=== PATIENT | male | born 1985 | race Caucasian/White ===

== ENCOUNTER 2017-11-08 12:21 | Emergency (ER) | payer SELFPAY ==
[~2017-11-08] VITALS: Ht 167.6 cm; Wt 79.4 kg
[2017-11-08 12:34] VITALS: BP 132/86
--- NOTE | 2017-11-08 12:38 | NUR ---
PT AMBULATES TO BED 3
--- NOTE | 2017-11-08 12:48 | NUR ---
32 YO M PT C/O LUQ ABD PAIN RADIATING TO LLQ 10/10 FOR 2 WEEKS. DENIES N/V/D OR FEVER AND CHILLS. REPORTS HE DRINKS 2 BEERS EVERYDAY. LAST BM YESTERDAY. PT REPORTS THAT THE PAIN IS SO INTENSE THAT HE CANNOT LAY DOWN. AAOX4. GCS 15. CMS INTACT. RR EVEN AND UNLABORED. LUNGS BILATERALLY CLEAR. ABD SOFT, NON-TENDER. BOWEL SOUNDS ACTIVE X 4 QUADS. ER MD HOLMAN NOTIFIED. PT NEEDS MET. SAFETY PRECAUTIONS IN PLACE. WILL CONTINUE TO MONITOR.
[2017-11-08] MEDS ORDERED: LIDOCAINE VISCOUS 2% 20 ML UDC PO ONE (12:55)
[2017-11-08] MEDS ORDERED: ALUMINUM HYD/MAG/SIMETHICONE 30 ML UDC PO ONE (12:55)
[2017-11-08] MEDS ORDERED: DICYCLOMINE HCL LIQUID 10 MG/5 ML UDC PO ONE (12:55)
--- NOTE | 2017-11-08 13:15 | NUR ---
pt resting cofmortably in [facility] at this time. vss. rr even and unlabored. safety precautions in place. will continue to monitor.
[2017-11-08 13:55] VITALS: BP 121/68
== END 2017-11-08 13:55 | disposition home or self-care (01) ==
LOC: MED 12:21
DX: K59.00 Constipation, unspecified (principal); R03.0 Elevated blood-pressure reading, without diagnosis of hypertension
CPT/HCPCS: 74018; 99283; Q0092

== ENCOUNTER 2022-08-02 11:32 | Inpatient (IN) | payer MEDICAID ==
[~2022-08-02] VITALS: Ht 167.6 cm; Wt 89.4 kg
[2022-08-02 11:42] VITALS: BP 152/97
--- NOTE | 2022-08-02 11:55 | NUR ---
ASSUMED PATIENT CARE, NURSING ASSESSMENT COMPLETED.
[2022-08-02 12:54] LABS: APPEARANCE,URINE CLEAR (CLEAR); BILIRUBIN,URINE 1+ (NEGATIVE); BLOOD, URINE NEGATIVE (NEGATIVE); COLOR,URINE YELLOW (YELLOW); LEUKOCYTE ESTERASE ,URINE NEGATIVE (NEGATIVE); NITRITE, URINE NEGATIVE (NEGATIVE); UGLUCOSE NEGATIVE (NEGATIVE)
[2022-08-02 13:07] LABS: ANION GAP 14.3 (8-16); CARBON DIOXIDE 28.2 mmol/L (21-32); CREATININE 0.8 mg/dL (0.6-1.3); POTASSIUM 3.5 mmol/L (3.5-5.1); TOTAL BILIRUBIN 1.8 mg/dL (0.0-1.0)
[2022-08-02 13:12] LABS: BASOPHILS % (AUTO) 0.4 % (0.0-2.0); EOSINOPHILS % (AUTO) 0.1 % (0.0-4.0); HEMATOCRIT 50.1 % (36-52); HEMOGLOBIN 16.9 g/dL (12.0-18.0); LYMPHOCYTES # (AUTO) 2.3 K/uL (2.0-11.5); LYMPHOCYTES % (AUTO) 22.2 % (20.5-51.1); MEAN CORPUSCULAR HEMOGLOBIN 30 pg (27-31); MEAN CORPUSCULAR HGB CONC 34 g/dL (33-37); MEAN CORPUSCULAR VOLUME 88.4 fL (80-94); MONOCYTES # (AUTO) 0.6 K/uL (0.8-1.0); MONOCYTES % (AUTO) 5.5 % (1.7-9.3); NEUTROPHILS # (AUTO) 7.6 K/uL (1.8-7.7); NEUTROPHILS % (AUTO) 71.8 % (42.2-75.2); PLATELET COUNT (AUTO) 162 K/uL (140-450); RED BLOOD CELL COUNT(AUTO) 5.66 MIL/uL (4.20-6.10); WHITE BLOOD COUNT (AUTO) 10.6 K/uL (4.8-10.8)
[2022-08-02 13:14] LABS: RBC,URINE 0-5 /HPF (0-5); WBC,URINE 0-5 /HPF (0-5)
[2022-08-02] MEDS ORDERED: NACL 0.9% 1,000 ML IV ONE ×2 (13:20→16:15)
[2022-08-02] MEDS ORDERED: KETOROLAC 30 MG/ML VIAL IVP ONE (13:20)
[2022-08-02] MEDS ORDERED: PIPERACILLIN/TAZOBACTAM 3.375 GM in DEXTROSE 5% 50 ML IV ONE (13:20)
[2022-08-02] MEDS ORDERED: PIPERACILLIN/TAZOBACTAM 3.375 GM VIAL IV ONE (13:30)
[2022-08-02] MEDS ORDERED: ONDANSETRON 4 MG/2 ML VIAL IVP ONE (14:25)
[2022-08-02] MEDS ORDERED: MORPHINE SULFATE 4 MG/ML SYR IVP ONE (14:25)
--- NOTE | 2022-08-02 14:50 | NUR ---
DISPO AND MEDICAL DECISION INPATIENT ADMISSION FOR FURTHER MANAGEMENT PATIENT UPDATED ACCORDINGLY.
[2022-08-02 15:30] LABS: PROTHROMBIN TIME 11.6 secs (10.8-13.4)
--- NOTE | 2022-08-02 15:55 | NUR ---
FR 14 NGT INSERTED TO LEFT NARE. PLACEMENT CONFIRMED BY XRAY.
--- NOTE | 2022-08-02 17:17 | NUR ---
Patient will be admitted to care of [facility]. Admited to TELEMETRY. Will go to room [facility]. Belongings list completed. Report to WILLET.
[2022-08-02] MEDS: MORPHINE SULFATE 2 MG/ML SYR IVP PRN ×2 (18:01→23:12)
[2022-08-02 20:00] VITALS: BP 153/97
--- NOTE | 2022-08-02 20:00 | NUR ---
RECEIVED PT FROM DAY RN FOR CONTINUITY OF CARE. PT AWAKE, ALERT AND ORIENTED X 4, WELSH SPEAKING. ON ROOM AIR, BREATHING EVEN AND UNLABORED. VITAL SIGNS FOLLOWS 157/97 NM 86 RR 19 T 99.2 O2 SAT AT 94%. NGT IN PLACE ON LOW INTERMITTENT SUCTION. IV ON R AC G18 RUNNING NS AT 100ML/HR. SKIN WARM, DRY AND INTACT. PT COMPLAINS OF ABDOMINAL PAIN. PRN PAIN MEDICATION GIVEN. PT CURRENTLY NPO. POC DISCUSSED, ALL PRECAUTIONS IN PLACE .CALL LIGHT WITHIN REACH. WILL CONTINUE TO MONITOR.
[2022-08-02] MEDS ORDERED: KCL 20 MEQ IN 100 mL PREMIX 200 ML IV ONE (20:25)
--- NOTE | 2022-08-02 21:00 | NUR ---
CALLED. CURRENT CBC AND BMP RESULT GIVEN. ORDERS RECEIVED. K JUDE GIVEN PER MD. WILL CONTINUE TO MONITOR.
[2022-08-02] MEDS ORDERED: MAG SULF 2000 MG/WATER PREMIX 50 ML IV PRN (22:00)
[2022-08-02] MEDS ORDERED: DOCUSATE SODIUM 100 MG GELCAP PO PRN (22:00)
[2022-08-02] MEDS ORDERED: POTASSIUM CHLORIDE 10 MEQ TABER PO PRN (22:00)
[2022-08-02] MEDS ORDERED: ONDANSETRON 4 MG/2 ML VIAL IVP PRN (22:00)
--- NOTE | 2022-08-02 23:30 | NUR ---
PT COMPLAINS OF 7/10 ABDOMINAL PAIN. PRN PAIN MEDICATION GIVEN. WILL CONTINUE TO MONITOR.
[2022-08-03] VITALS: BP 151/79
--- NOTE | 2022-08-03 01:47 | NUR ---
PT IS ASLEEP. VISIBLE CHEST RISE AND FALL NOTED. NO S/SX OF DISTRESS. ALL PRECAUTIONS IN PLACE .WILL CONTINUE TO MONITOR.
[2022-08-03 03:54] LABS: BASOPHILS % (AUTO) 0.4 % (0.0-2.0); EOSINOPHILS # (AUTO) 0.2 K/uL (0-0.4); EOSINOPHILS % (AUTO) 2.1 % (0.0-4.0); HEMATOCRIT 45.4 % (36-52); HEMOGLOBIN 15.4 g/dL (12.0-18.0); LYMPHOCYTES # (AUTO) 1.9 K/uL (2.0-11.5); LYMPHOCYTES % (AUTO) 23.7 % (20.5-51.1); MEAN CORPUSCULAR HEMOGLOBIN 30 pg (27-31); MEAN CORPUSCULAR HGB CONC 34 g/dL (33-37); MEAN CORPUSCULAR VOLUME 88.9 fL (80-94); MONOCYTES # (AUTO) 0.7 K/uL (0.8-1.0); MONOCYTES % (AUTO) 8.8 % (1.7-9.3); NEUTROPHILS # (AUTO) 5.3 K/uL (1.8-7.7); PLATELET COUNT (AUTO) 120 K/uL (140-450); RED BLOOD CELL COUNT(AUTO) 5.11 MIL/uL (4.20-6.10); RED CELL DISTRIBUTION WIDTH 14.1 % (11.6-13.7); WHITE BLOOD COUNT (AUTO) 8.2 K/uL (4.8-10.8)
[2022-08-03 04:00] VITALS: BP 155/87
[2022-08-03 04:04] LABS: ANION GAP 9.7 (8-16); CARBON DIOXIDE 31.3 mmol/L (21-32); CREATININE 0.8 mg/dL (0.6-1.3)
--- NOTE | 2022-08-03 06:40 | NUR ---
PT IS STABLE. NO ACUTE EVENTS THROUGHOUT THE NIGHT. NO S/SX OF DISTRESS OF THE MOMENT. NO COMPLAINS OF PAIN. ALL PRECAUTIONS IN PLACE. CALL LIGHT WITHIN REACH. WILL ENDORSE TO DAY SHIFT NURSE.
[2022-08-03] MEDS ORDERED: GLYCOPYRROLATE 0.2 MG/ML VIAL ONE (07:00)
[2022-08-03] MEDS ORDERED: PIPERACILLIN/TAZOBACTAM 3.375 GM VIAL IV ONE ×2 (07:00→08:21)
[2022-08-03] MEDS ORDERED: SUCCINYLCHOLINE CHLORIDE 200 MG/10 ML VIAL IVP ONE ×2 (07:00→08:38)
[2022-08-03] MEDS ORDERED: VECURONIUM 10 MG VIAL IVP ONE (07:00)
[2022-08-03] MEDS ORDERED: PROPOFOL 200 MG/20 ML VIAL IV ONE ×2 (07:00→08:38)
[2022-08-03] MEDS ORDERED: SEVOFLURANE 250 ML BTL INH ONE (07:00)
[2022-08-03] MEDS ORDERED: ONDANSETRON 4 MG/2 ML VIAL ONE (07:00)
[2022-08-03] MEDS ORDERED: NEOSTIGMINE 1:1000 10 MG/10 ML VIAL ONE (07:00)
[2022-08-03] MEDS ORDERED: fentaNYL citrate 0.05 MG/ML - 50mL vial IV ONE (07:00)
[2022-08-03] MEDS ORDERED: ROCURONIUM 50 MG/5 ML VIAL IV ONE ×3 (07:00→08:38)
--- NOTE | 2022-08-03 07:15 | NUR ---
RECEIVED REPORT FROM ETIQUETTE COACH FOR CONTINUITY OF CARE. PATIENT LYING DOWN IN BED, NO DISTRESS NOTED. PAIN WITHIN TOLERABLE. IV SITE INTACT, PATENT, AND ON SALINE LOCK. ON O2 NC 2L/MIN. SCHEDULED FOR SURGERY AT 07:30, PATIENT AWARE. REVIEWED PLAN OF CARE WITH PATIENT. VERBALIZED UNDERSTANDING. SAFETY MEASURES IN PLACE, CALL LIGHT WITHIN REACH. WILL CONTINUE TO MONITOR.
[2022-08-03] MEDS ORDERED: BUPIVACAINE-MPF/EPI 0.25% 30 ML VIAL INJ ONE (07:39)
--- NOTE | 2022-08-03 07:40 | NUR ---
OR NURSES TAKING PATIENT FOR SURGERY.
[2022-08-03] MEDS ORDERED: fentaNYL citrate 0.05 MG/ML VIAL ONE (07:54)
[2022-08-03] MEDS: DEXT 5% / NACL 0.45% 1,000 ML IV SCH ×2 (09:35→19:35)
[2022-08-03] MEDS: HYDROmorphone 1 MG/ML AMP IVP PRN ×7 (09:55→17:06)
[2022-08-03] MEDS ORDERED: HYDROmorphone PFS 2 MG/ML SYR ONE ×2 (09:57→10:45)
[2022-08-03] MEDS ORDERED: hydrALAZINE 20 MG/ML VIAL IVP PRN (10:04)
[2022-08-03] MEDS ORDERED: LABETALOL 20 MG/4 ML VIAL IVP PRN (10:04)
[2022-08-03] MEDS ORDERED: LACTATED RINGERS 1,000 ML IV SCH (10:05)
[2022-08-03] MEDS ORDERED: HYDROmorphone 1 MG/ML AMP IVP SCH (10:30)
[2022-08-03 11:15] VITALS: BP 134/82
--- NOTE | 2022-08-03 11:15 | NUR ---
PATIENT BACK FROM OR, ON NC 5 L/MIN WITH O2 SAT 94%. PAIN WITHIN TOLERABLE AT THIS TIME. V/S STABLE. WILL CONTINUE TO MONITOR PER PROTOCOL.
--- NOTE | 2022-08-03 11:30 | NUR ---
DC PLANNING ASSESSMENT COMPLETE PLEASE REFER TO ASSESSMENT FOR ADDITIONAL DETAILS PT REPORTS TENTATIVE DC PLAN IS TO RETURN HOME WITH FAMILY PROVIDING TRANSPORTATION, ONCE MEDICALLY STABLE. Addendum: 08/04/22 at 1503 by Gamal YUAN Amended: Links added.
[2022-08-03] MEDS: PIPERACILLIN/TAZOBACTAM 3.375 GM in DEXTROSE 5% 50 ML IV SCH ×2 (12:00→17:28)
--- NOTE | 2022-08-03 12:18 | NUR ---
PATIENT SLEEPING, AT BEDSIDE. V/S STABLE. SCHEDULED MEDICATIONS DUE GIVEN. WILL CONTINUE TO MONITOR.
--- NOTE | 2022-08-03 12:21 | NUR ---
PATIENT HAS BEEN SCREENED AND CATEGORIZED MODERATE NUTRITION RISK. PATIENT WILL BE SEEN WITHIN 3-5 DAYS OF ADMISSION. REVIEWED BY KIEL DE LEON RD
[2022-08-03] MEDS: ACETAMINOPHEN 325 MG TAB PO PRN (14:17)
--- NOTE | 2022-08-03 14:26 | NUR ---
COMPLAINS OF A HEADACHE, TYLENOL GIVEN AT THIS TIME.
[2022-08-03] MEDS: MORPHINE SULFATE 2 MG/ML SYR IVP PRN ×2 (15:07→19:22)
--- NOTE | 2022-08-03 15:12 | NUR ---
COMPLAINS OF ABD PAIN. MORPHINE IVP PRN GIVEN AT THIS TIME. WILL CONTINUE TO MONITOR.
[2022-08-03 16:00] VITALS: BP 147/77
--- NOTE | 2022-08-03 19:17 | NUR ---
GAVE REPORT TO CUSTOM STOCK MAKER NURSE FOR CONTINUITY OF CARE.
--- NOTE | 2022-08-03 19:22 | NUR ---
RECEIVED PT IN BED AWAKE, ALERT AND ORIENTED. COMPLAINING OF 10/10 ABDOMINAL PAIN, MEDICATED WITH MORPHINE ORDERED. ABDOMINAL DRESSING CDI. IVF INFUSING WELL ORDERED. NGT TUBE TO LIS. SKIN WARM AND DRY TO TOUCH. FAMILY MEMBER AT THE BEDSIDE. SAFETY PRECAUTION IN PLACE, CALL LIGHT IN REACH.
[2022-08-03 19:55] VITALS: BP 136/94
--- NOTE | 2022-08-03 20:21 | NUR ---
INFORMED DR. GUAJARDO PT STILL IN PAIN, NEW ORDER GIVEN FOR DILAUDID 2 MG X1 NOW. WILL CARRY OUT ORDERED.
[2022-08-03] MEDS: LORazepam 2 MG/ML VIAL IVP PRN (20:27)
[2022-08-03] MEDS ORDERED: HYDROmorphone PFS 2 MG/ML SYR IVP SCH (20:35)
--- NOTE | 2022-08-03 22:00 | NUR ---
ROUNDING DONE. PATIENT IS ASLEEP. NO S/SX OF PAIN NOR DISCOMFORT. CALL LIGHT IN REACH.
[2022-08-04] VITALS: BP 145/92
--- NOTE | 2022-08-04 | NUR ---
VITAL SIGNS TAKEN AND DOCUMENTED. NO S/SX OF PAIN NOR DISCOMFORT.
[2022-08-04] MEDS: PIPERACILLIN/TAZOBACTAM 3.375 GM in DEXTROSE 5% 50 ML IV SCH ×3 (00:38→13:17)
[2022-08-04] MEDS: HYDROmorphone 1 MG/ML AMP IVP PRN ×2 (01:45→08:10)
[2022-08-04] MEDS: DEXT 5% / NACL 0.45% 1,000 ML IV SCH (01:55)
[2022-08-04] MEDS: MORPHINE SULFATE 2 MG/ML SYR IVP PRN ×3 (03:57→23:07)
[2022-08-04 04:00] VITALS: BP 147/77
[2022-08-04 05:31] LABS: BASOPHILS % (AUTO) 0.1 % (0.0-2.0); EOSINOPHILS % (AUTO) 0.2 % (0.0-4.0); HEMATOCRIT 42.4 % (36-52); HEMOGLOBIN 14.5 g/dL (12.0-18.0); LYMPHOCYTES % (AUTO) 22.1 % (20.5-51.1); MEAN CORPUSCULAR HEMOGLOBIN 30 pg (27-31); MEAN CORPUSCULAR HGB CONC 34 g/dL (33-37); MONOCYTES # (AUTO) 1.1 K/uL (0.8-1.0); MONOCYTES % (AUTO) 12.4 % (1.7-9.3); NEUTROPHILS # (AUTO) 5.9 K/uL (1.8-7.7); NEUTROPHILS % (AUTO) 65.2 % (42.2-75.2); PLATELET COUNT (AUTO) 113 K/uL (140-450); RED BLOOD CELL COUNT(AUTO) 4.76 MIL/uL (4.20-6.10); RED CELL DISTRIBUTION WIDTH 13.5 % (11.6-13.7); WHITE BLOOD COUNT (AUTO) 9.1 K/uL (4.8-10.8)
--- NOTE | 2022-08-04 06:28 | NUR ---
PATIENT IS ASLEEP. NO S/SX OF PAIN NOR DISCOMFORT. NOTED 150 ML OF BROWNISH FLUID FROM NGT. ALL NEEDS ATTENDED TO. SAFETY PRECAUTIONS MAINTAINED DURING THE SHIFT, CALL LIGHT REMAINS WITHIN REACH.
[2022-08-04 07:27] LABS: ANION GAP 12.7 (8-16); CARBON DIOXIDE 28.7 mmol/L (21-32); POTASSIUM 3.4 mmol/L (3.5-5.1)
[2022-08-04 07:28] LABS: CREATININE 0.8 mg/dL (0.6-1.3)
--- NOTE | 2022-08-04 07:30 | NUR ---
RECEIVED ENDORSEMENT FROM NURSE FOR CONTINUATION OF CARE.
[2022-08-04 08:00] VITALS: BP 154/90
--- NOTE | 2022-08-04 08:10 | NUR ---
PATIENT REPORTS 10/10 PAIN. DILAUDED GIVEN
[2022-08-04] MEDS: PANTOPRAZOLE 40 MG INJ VIAL IVP SCH (09:00)
[2022-08-04] MEDS ORDERED: HYDROmorphone 1 MG/ML AMP IVP PRN (10:20)
[2022-08-04] MEDS ORDERED: HYDROmorphone PFS 2 MG/ML SYR IVP PRN (10:21)
[2022-08-04 12:00] VITALS: BP 129/90
--- NOTE | 2022-08-04 13:00 | NUR ---
PATIENT REPORTS PAIN /. DILUDED GIVEN
[2022-08-04] MEDS: POTASSIUM CHL 20 MEQ/D5-1/2NS 1,000 ML IV SCH ×2 (14:45→23:11)
[2022-08-04 16:00] VITALS: BP 129/90
[2022-08-04] MEDS: HYDROmorphone PFS 2 MG/ML SYR IVP PRN (18:58)
--- NOTE | 2022-08-04 19:20 | NUR ---
ENDORSED PATIENT TO PM SHIFT NURSE FOR CONTINUATION OF CARE.
--- NOTE | 2022-08-04 19:30 | NUR ---
RECEIVED PATIENT IN BED, ASLEEP, EASILY AWAKEN WITH VERBAL STIMULI. FAMILY MEMBER AT THE BEDSIDE. DENIES PAIN AT THIS TIME. DENIES SHORTNESS OF BREATH. SKIN WARM AND DRY TO TOUCH. ABDOMINAL DRESSING CDI, NGT TO LIS DRAINING GREENISH/BROWNISH FLUID. BED IN THE LOWEST AND LOCKED POSITION FOR SAFETY, CALL LIGHT IN REACH.
[2022-08-04 19:49] VITALS: BP 133/85
--- NOTE | 2022-08-04 23:05 | NUR ---
PATIENT COMPLAINING OF ABDOMINAL PAIN, MEDICATED WITH MORPHINE ORDERED.
[2022-08-05] VITALS: BP 124/88
--- NOTE | 2022-08-05 | NUR ---
VITAL SIGNS TAKEN AND DOCUMENTED. DENIES PAIN AT THIS TIME.CALL LIGHT IN REACH.
[2022-08-05] MEDS: LORazepam 2 MG/ML VIAL IVP PRN (00:50)
--- NOTE | 2022-08-05 00:50 | NUR ---
PATIENT CALLED AND WANTED SOMETHING TO RELAX AND SLEEP, MEDICATED WITH ATIVAN ORDERED. PERINEAL CARE RENDERED. PULLED UP AND POSITIONED FOR COMFORT. HEAD OF THE BED ELEVATED. CALL LIGHT PLACED WITHIN REACH.
--- NOTE | 2022-08-05 02:00 | NUR ---
ROUNDING DONE. PATIENT IS ASLEEP. NO S/SX OF PAIN NOR DISCOMFORT. CALL LIGHT REMAINS WITHIN REACH.
[2022-08-05] MEDS: HYDROmorphone PFS 2 MG/ML SYR IVP PRN (03:42)
[2022-08-05 04:00] VITALS: BP 141/97
--- NOTE | 2022-08-05 04:42 | NUR ---
RE-ASSESSED FOR PAIN, PT ASLEEP AT THIS TIME NO S/SX OF PAIN NOR DISCOMFORT.
--- NOTE | 2022-08-05 05:37 | NUR ---
PT REQUESTING FOR WATER, REMINDED PT HE IS NPO. ORAL CARE DONE. REPOSITIONED FOR COMFORT.
[2022-08-05] MEDS: MORPHINE SULFATE 2 MG/ML SYR IVP PRN ×4 (06:25→20:35)
--- NOTE | 2022-08-05 06:25 | NUR ---
PATIENT IS AWAKE, ALERT AND ORIENTED. COMPLAINING OF PAIN, MEDICATED ORDERED. PATIENT APPRECIATIVE OF CARE. ALL NEEDS ATTENDED TO. SAFETY PRECAUTIONS MAINTAINED DURING THE SHIFT, CALL LIGHT REMAINS WITHIN REACH.
--- NOTE | 2022-08-05 06:34 | NUR ---
SPOKE WITH DR. DARLNIG, INFORMED MD THAT OUTPUT FROM NGT IS 200ML, PER REMOVE NGT AND START PT ON CLEAR LIQUID DIET. WILL CARRY OUT ORDERED.
--- NOTE | 2022-08-05 06:47 | NUR ---
REMOVED NGT ORDERED BY DR. CASTORENA, PT TOLERATED WELL. PROVIDED ICE CHIPS.
--- NOTE | 2022-08-05 07:25 | NUR ---
receive the patient from the night time babysitter rn in room 111B aox4 with admitting diagnosis of bowel obstruction . will continue to monitor
[2022-08-05 08:00] VITALS: BP 122/79
[2022-08-05] MEDS: PANTOPRAZOLE 40 MG INJ VIAL IVP SCH (09:18)
[2022-08-05] MEDS: POTASSIUM CHL 20 MEQ/D5-1/2NS 1,000 ML IV SCH ×2 (10:10→20:43)
--- NOTE | 2022-08-05 10:42 | NUR ---
patient complain of abdominal pain of 8/10 . morphine sulfate was administered on patient intravenous on his right hand . will re assess after 1 hour .
[2022-08-05 12:00] VITALS: BP 137/81
[2022-08-05] MEDS: ACETAMINOPHEN 325 MG TAB PO PRN (12:02)
[2022-08-05 16:00] VITALS: BP 123/79
--- NOTE | 2022-08-05 19:06 | NUR ---
will endorse to shift engineer rn for continuity of care , for antibiotics and encourage to ambulate . pain managemaent is laos considered
[2022-08-05 20:00] VITALS: BP 141/85
[2022-08-05] MEDS: guaiFENesin 600 MG TABER PO SCH (20:34)
[2022-08-05] MEDS: ZOLPIDEM 10 MG TAB PO PRN (22:58)
[2022-08-06] VITALS: BP 128/80
[2022-08-06 04:00] VITALS: BP 145/84
--- NOTE | 2022-08-06 07:01 | NUR ---
receive the patient from the insurance advisor abdoulaye garcia with admitting diagnosis of small bowel obstruction . will continue to monitor
[2022-08-06 08:00] VITALS: BP 114/79
[2022-08-06] MEDS: PANTOPRAZOLE 40 MG INJ VIAL IVP SCH (08:38)
[2022-08-06] MEDS: guaiFENesin 600 MG TABER PO SCH ×2 (08:38→20:59)
[2022-08-06] MEDS: POTASSIUM CHL 20 MEQ/D5-1/2NS 1,000 ML IV SCH (09:11)
--- NOTE | 2022-08-06 10:32 | NUR ---
potassium level of the patient is 3.4 . with D5 Na . 45 with 20K chloride at 100mls/hr . will continue to monitor
[2022-08-06] MEDS: MORPHINE SULFATE 2 MG/ML SYR IVP PRN (10:55)
[2022-08-06] MEDS: LORazepam 2 MG/ML VIAL IVP PRN (11:54)
[2022-08-06 12:00] VITALS: BP 123/76
[2022-08-06] MEDS ORDERED: POTASSIUM CHLORIDE 10 MEQ TABER PO ONE (13:45)
[2022-08-06] MEDS ORDERED: bisacodyL 5 MG TABEC PO ONE (13:45)
[2022-08-06] MEDS ORDERED: bisacodyL 5 MG TABEC PO SCH (14:00)
[2022-08-06] MEDS: HYDROcodone/APAP 5/325 MG 1 TAB TAB PO PRN ×2 (14:25→20:59)
[2022-08-06 16:00] VITALS: BP 138/71
--- NOTE | 2022-08-06 16:11 | NUR ---
md mooney made some rounds . discontinue morphine 2mg q4 hrs , clear liquid diet , D5 NA .45 with 20 KCL at 100 mls /hr . order regular diet , bisacodyl , Kcl 40meq by mouth x1 , abdominal xray , BMP . noted and carried out . will continue to monitor .
[2022-08-06] MEDS: ACETAMINOPHEN 325 MG TAB PO PRN (16:19)
--- NOTE | 2022-08-06 17:56 | NUR ---
suction set up was done on patient bedside for patient complain of dry cough . patient is on guafenesin for cough . made patient teaching of the equipment
--- NOTE | 2022-08-06 19:03 | NUR ---
will endorse to cake winder rn for continuity of care .most medications are per orem now . discontinue intravenous medications to monitor bowel movement for discharge
[2022-08-06 20:00] VITALS: BP 142/89
[2022-08-06] MEDS: ZOLPIDEM 10 MG TAB PO PRN (23:03)
[2022-08-07] VITALS: BP 136/84
[2022-08-07] MEDS: HYDROcodone/APAP 5/325 MG 1 TAB TAB PO PRN ×2 (02:45→16:36)
[2022-08-07 04:00] VITALS: BP 135/89
--- NOTE | 2022-08-07 07:31 | NUR ---
PT A/O X4 , NO SOB /DISTRESS. CONTINUE WITH PAIN MAGT, AMBULATED TOLERATED . NO N/V, NO B/M. REG DIET TOLERATED WELL . PT CARE ENDORSED TO INCOMING RN
[2022-08-07 07:42] LABS: BASOPHILS % (AUTO) 0.3 % (0.0-2.0); EOSINOPHILS # (AUTO) 0.3 K/uL (0-0.4); EOSINOPHILS % (AUTO) 4.4 % (0.0-4.0); HEMATOCRIT 41.1 % (36-52); HEMOGLOBIN 14.2 g/dL (12.0-18.0); LYMPHOCYTES # (AUTO) 2.8 K/uL (2.0-11.5); LYMPHOCYTES % (AUTO) 40.8 % (20.5-51.1); MEAN CORPUSCULAR HEMOGLOBIN 30 pg (27-31); MEAN CORPUSCULAR HGB CONC 34 g/dL (33-37); MONOCYTES # (AUTO) 0.6 K/uL (0.8-1.0); MONOCYTES % (AUTO) 8.5 % (1.7-9.3); NEUTROPHILS # (AUTO) 3.2 K/uL (1.8-7.7); PLATELET COUNT (AUTO) 165 K/uL (140-450); RED BLOOD CELL COUNT(AUTO) 4.67 MIL/uL (4.20-6.10); RED CELL DISTRIBUTION WIDTH 13.3 % (11.6-13.7); WHITE BLOOD COUNT (AUTO) 6.9 K/uL (4.8-10.8)
[2022-08-07 07:50] LABS: ANION GAP 10.3 (8-16); CARBON DIOXIDE 28.3 mmol/L (21-32); CREATININE 0.7 mg/dL (0.6-1.3); POTASSIUM 3.6 mmol/L (3.5-5.1)
[2022-08-07 08:00] VITALS: BP 132/83
[2022-08-07] MEDS: guaiFENesin 600 MG TABER PO SCH (09:35)
[2022-08-07] MEDS: PANTOPRAZOLE 40 MG INJ VIAL IVP SCH (09:36)
[2022-08-07 12:00] VITALS: BP 137/86
[2022-08-07] MEDS ORDERED: HYDR-5080 PO (14:20)
[2022-08-07] MEDS ORDERED: NAPR-54 PO (14:21)
[2022-08-07 15:33] VITALS: BP 131/77
[2022-08-07 16:00] VITALS: BP 131/77
--- NOTE | 2022-08-07 16:17 | NUR ---
08/07/22 RD INITIAL ASSESSMENT COMPLETED. PLEASE REFER TO NUTRITION ASSESSMENT UNDER CARE ACTIVITY FOR ESTIMATED NUTRITIONAL NEEDS. 1. CONTINUE REGULAR DIET TOLERATED 2. MONITOR GI SYMPTOMS. 3. RD TO FOLLOW-UP 3-5 DAYS, MODERATE RISK BECKY BROUSSARD RD
--- NOTE | 2022-08-07 17:10 | NUR ---
DISCHARGE PATIENT PER PCP ORDER, DISCHARGE INSTRUCTION GIVE, DISCHARGE CONSENT SIGN, IV ACCESS, TEL MONITOR, & WRIST BAND REMOVE PRIOR WHEEL PATIENT OUT THE FACILITY
== END 2022-08-07 17:00 | disposition home or self-care (01) | DRG 227 ==
LOC: MED 11:32 → MTU 16:26
PROC: 0WQF0ZZ Repair Abdominal Wall, Open Approach (ICD-10-PCS; 2022-08-03)
PROC: 0DN80ZZ Release Small Intestine, Open Approach (ICD-10-PCS; 2022-08-03)
PROC: 0D9670Z Drainage of Stomach with Drainage Device, Via Natural or Artificial Opening (ICD-10-PCS; principal; 2022-08-03 07:00)
DX: K43.0 Incisional hernia with obstruction, without gangrene (principal); E87.20 Acidosis, unspecified; E83.51 Hypocalcemia; I10 Essential (primary) hypertension; E87.6 Hypokalemia; E83.42 Hypomagnesemia; Z20.822 Contact with and (suspected) exposure to COVID-19; Z90.49 Acquired absence of other specified parts of digestive tract
CPT/HCPCS: 36415; 71045; 74022; 80048; 80053; 81001; 82948; 83605; 83735; 85025; 85610; 85730; 86886; 86900; 86901; 87040; 87081; 87086; 93005; 96361; 96365; 96375; 97116; 97163-GP; 99285; C9113; J0330; J1170; J1885; J2060; J2270; J2405; J2543; J2704; J2710; J3010; J3475; J3480; J3490; J7060; J7120; Q0092